=== PATIENT | female | born 1995 | race Caucasian/White ===

== ENCOUNTER 2016-07-24 09:16 | Emergency (ER) | payer SELFPAY ==
[2016-07-24 10:27] VITALS: BP 112/67
--- NOTE | 2016-07-24 11:02 | UC ---
Throat Pain/Nasal Juarez HPI - HPI Summary HPI Summary: complaint of waking up this morning with bilateral eye redness both eyes are itchy purulent drainage in her eyelashes this morning denies vision changes, denies eye pain complaint of nasal congestion and cough that started 2 weeks ago frequent headache increasing pressure in her sinusies productive cough denies fever and chills took some mucinex without relief - History of Current Complaint Chief Complaint: UCGeneralIllness Stated Complaint: SINUS,BILATERAL EYE Time Seen by Provider: 07/24/16 10:55 Hx Last Menstrual Period: doesn't get anymore; on OCP - Allergies/Home Medications Allergies/Adverse Reactions: Allergies Allergy/AdvReac Type Severity Reaction Status Date / Time No Known Allergies Allergy Verified 07/24/16 10:19 Home Medications: Home Medications Norethin Acet & Estrad-Fe [Minastrin 24 Fe 1-20 mg-Mcg(24)] 1 chw PO DAILY 07/24 [History Confirmed 07/24/16] PMH/Surg Hx/FS Hx/Imm Hx Previously Healthy: Yes - Surgical History Surgical History: Yes Surgery Procedure, Year, and Place: plastic surgery on lip for hemangioma, wisdom teeth - Family History Known Family History: Negative: Cardiac Disease, Hypertension, Diabetes - Social History Occupation: Student Alcohol Use: Weekly Substance Use Type: None Smoking Status (MU): Never Smoked Tobacco Review of Systems Constitutional: Negative Skin: Negative Eyes: Eye Redness ENT: Nasal Discharge Respiratory: Cough Cardiovascular: Negative Gastrointestinal: Negative Genitourinary: Negative Motor: Negative Neurovascular: Negative Musculoskeletal: Negative Neurological: Negative Psychological: Negative All Other Systems Reviewed And Are Negative: Yes Physical Exam Triage Information Reviewed: Yes Appearance: No Pain Distress, Well-Nourished Vital Signs: Initial Vital Signs Temp 99.2 F 07/24/16 10:20 Pulse 61 07/24/16 10:20 Resp 16 07/24/16 10:20 BP 112/67 07/24/16 10:20 Pulse Ox 98 07/24/16 10:20 Vital Signs Reviewed: Yes Eyes: Positive: Conjunctiva Inflamed, Discharge ENT: Positive: Pharyngeal erythema, Nasal congestion, Nasal drainage, TMs normal , Other: - frontal and maxillary sinus tenderness Neck: Positive: No Lymphadenopathy Respiratory: Positive: Lungs clear, Normal breath sounds, No respiratory distress, No accessory muscle use Cardiovascular: Positive: RRR, No Murmur, Pulses Normal Abdomen Description: Positive: Nontender, Soft Bowel Sounds: Positive: Present Musculoskeletal Exam: Normal Neurological: Positive: Alert Psychological Exam: Normal Skin Exam: Normal Throat Pain/Nasal Course/Dx - Differential Dx/Diagnosis Differential Diagnosis/HQI/PQRI: Sinusitis, URI, Other - conjunctivitis Provider Diagnoses: conjuncitivitis, sinusitis Discharge - Discharge Plan Condition: Stable Disposition: HOME Prescriptions: Amoxicillin/Clavulanate TAB* [Augmentin TAB 875*] 875 mg PO BID #20 tab Erythromycin OPHTH.OINT* [Ilotycin OPHTH.OINT*] 1 applic BOTH EYES TID #1 ophth.oint Patient Education Materials: Conjunctivitis (ED), Sinusitis (ED) Referrals: Non Staff,Doctor [Primary Care Provider] - [facility] [place]Outside] Additional Instructions: Please take antibiotic as directed Increase fluids and rest Take acetaminophen or ibuprofen for fever or pain Please review your discharge instructions. If your symptoms do not improve please call your primary care provider or return to urgent care.
== END 2016-07-24 11:19 | disposition home or self-care (01) ==
LOC: UCCORT 09:16
DX: H10.33 Unspecified acute conjunctivitis, bilateral (principal); J32.9 Chronic sinusitis, unspecified
CPT/HCPCS: 99202; G0463

== ENCOUNTER 2016-08-31 09:12 | Emergency (ER) | payer OTHER ==
[2016-08-31] MEDS ORDERED: Tetan/Diph/Pertus SYR(Tdap)* 0.5 ML SYR(BOOSTRIX) use SYR IM ONE (10:01)
--- NOTE | 2016-08-31 10:14 | UC ---
Skin Complaint HPI - HPI Summary HPI Summary: stepped on a nail with her left foot, small abrasion / puncture wound requesting TDap - History of Current Complaint Chief Complaint: UCWounds Time Seen by Provider: 08/31/16 10:00 Stated Complaint: STEPPED ON NAIL,LEFT FOOT Hx Obtained From: Patient Hx Last Menstrual Period: unknown, due to birthcontrol does not get ?: No Onset/Duration: Sudden Onset, Lasting Days - 1, Still Present Timing: Constant Onset Severity: Mild Current Severity: Mild Location: Foot (Left) - plantar Aggravating: Nothing Alleviating: Nothing Associated Signs & Symptoms: Positive: Negative - Allergy/Home Medications Allergies/Adverse Reactions: Allergies Allergy/AdvReac Type Severity Reaction Status Date / Time No Known Allergies Allergy Verified 08/31/16 09:48 Review of Systems Constitutional: Negative Eyes: Negative ENT: Negative Respiratory: Negative Cardiovascular: Negative Gastrointestinal: Negative All Other Systems Reviewed And Are Negative: Yes PMH/Surg Hx/FS Hx/Imm Hx Previously Healthy: Yes - Surgical History Surgical History: Yes Surgery Procedure, Year, and Place: plastic surgery on lip for hemangioma, wisdom teeth - Family History Known Family History: Negative: Cardiac Disease, Hypertension, Diabetes - Social History Alcohol Use: Occasionally Substance Use Type: None Smoking Status (MU): Never Smoked Tobacco Physical Exam Triage Information Reviewed: Yes Appearance: Well-Appearing, No Pain Distress, Well-Nourished Vital Signs: Initial Vital Signs Temp 98.2 F 08/31/16 09:43 Pulse 60 08/31/16 09:43 Resp 14 08/31/16 09:43 BP 104/61 08/31/16 09:43 Pulse Ox 100 08/31/16 09:43 Vital Signs Reviewed: Yes Eyes: Positive: Conjunctiva Clear ENT: Positive: Normal ENT inspection, Hearing grossly normal, Pharynx normal Neck exam: Normal Neck: Positive: Supple, Nontender, No Lymphadenopathy Respiratory: Positive: Chest non-tender, Lungs clear, Normal breath sounds Cardiovascular: Positive: RRR, No Murmur, Pulses Normal Skin: Positive: Other - plantar left foot: small puncture wound , no bleeding , no tenderness, no swelling, no erythema Course/Dx - Diagnoses Provider Diagnoses: puncture wound left foot Discharge - Discharge Plan Condition: Stable Disposition: HOME Patient Education Materials: Puncture Wound (ED) Referrals: Non Staff,Doctor [Primary Care Provider] - If Needed
[2016-08-31 10:23] VITALS: BP 104/61
== END 2016-08-31 10:20 | disposition home or self-care (01) ==
LOC: UCCORT 09:12
DX: S91.332A Puncture wound without foreign body, left foot, initial encounter (principal); W22.8XXA Striking against or struck by other objects, initial encounter; Y92.9 Unspecified place or not applicable
CPT/HCPCS: 90471; 90715; 99211; G0463

== ENCOUNTER 2017-01-01 09:49 | Emergency (ER) | payer OTHER ==
[2017-01-01 11:21] VITALS: BP 104/60
--- NOTE | 2017-01-01 11:32 | UC ---
UC General HPI - HPI Summary HPI Summary: patient has had diarrhea for the past 6 days, today it is clearing up, she is able to eat and drink without difficulty. she denies any fever, blood in her stool or vomiting, or abdominal pain - History of Current Complaint Chief Complaint: UCGI Stated Complaint: DIARRHEA X 7 DAYS Time Seen by Provider: 01/01/17 11:22 Hx Obtained From: Patient Hx Last Menstrual Period: "I don't really get one." June BCP Onset/Duration: Sudden Onset, Lasting Days Timing: Intermittent Episodes Lasting: Onset Severity: Moderate Current Severity: Mild Associated Signs & Symptoms: Positive: Diarrhea - Allergy/Home Medications Allergies/Adverse Reactions: Allergies Allergy/AdvReac Type Severity Reaction Status Date / Time No Known Allergies Allergy Verified 01/01/17 11:17 Home Medications: Home Medications Bismuth Subsalicylate [Pepto-Bismol] 524 mg PO Q2H PRN 01/01/17 [History Confirmed 01/01/17] Norethin Acet & Estrad-Fe [04/09 1-20 mg-Mcg] 1 tab PO DAILY 01/01/17 [ History Confirmed 01/01/17] PMH/Surg Hx/FS Hx/Imm Hx Previously Healthy: Yes - Surgical History Surgical History: Yes Surgery Procedure, Year, and Place: plastic surgery on lip for hemangioma, wisdom teeth - Family History Known Family History: Negative: Cardiac Disease, Hypertension, Diabetes - Social History Alcohol Use: Weekly Substance Use Type: None Smoking Status (MU): Former Smoker Length of Time of Smoking/Using Tobacco: 03/27 PPD for 1 Year When Did the Patient Quit Smoking/Using Tobacco: 2013 - Immunization History Most Recent Influenza Vaccination: Not the 2016/2017 Season Most Recent Tetanus Shot: 08/31/16 Review of Systems Constitutional: Negative Skin: Negative Eyes: Negative ENT: Negative Respiratory: Negative Cardiovascular: Palpitations Gastrointestinal: Diarrhea Genitourinary: Negative Motor: Negative Neurovascular: Negative Musculoskeletal: Negative Neurological: Negative Psychological: Negative Is Patient Immunocompromised?: No All Other Systems Reviewed And Are Negative: Yes Physical Exam Triage Information Reviewed: Yes Appearance: Well-Appearing, No Pain Distress, Well-Nourished Vital Signs: Initial Vital Signs Temp 98.6 F 01/01/17 11:13 Pulse 58 01/01/17 11:13 Resp 16 01/01/17 11:13 BP 104/60 01/01/17 11:13 Pulse Ox 100 01/01/17 11:13 Vital Signs Reviewed: Yes Eye Exam: Normal ENT Exam: Normal ENT: Positive: Hearing grossly normal, Pharynx normal, TMs normal Dental Exam: Normal Neck exam: Normal Respiratory Exam: Normal Respiratory: Positive: Chest non-tender, Lungs clear, Normal breath sounds Cardiovascular Exam: Normal Cardiovascular: Positive: RRR, No Murmur, Pulses Normal Abdomen Description: Positive: Nontender, No Organomegaly, Soft, CVA Tenderness (R) - neg, CVA Tenderness (L) - neg Bowel Sounds: Positive: Present Musculoskeletal Exam: Normal Musculoskeletal: Positive: ROM Intact, No Edema Neurological Exam: Normal Neurological: Positive: Alert Psychological Exam: Normal Skin Exam: Normal Course/Dx - Course Course Of Treatment: hx obtained, exam performed, meds reviewed, patient is asymptomatic at this time, reports improvement of symtpoms, recommend probiotic - Differential Dx - Multi-Symptom Provider Diagnoses: diarrhea Discharge - Discharge Plan Condition: Stable Disposition: HOME Patient Education Materials: Nutrition Tips for Relief of Diarrhea (ED) Additional Instructions: 1. take a daily probiotics. 2. Increase fluid intake and get rest 3. Follow up with any worsening symtpoms.
== END 2017-01-01 11:37 | disposition home or self-care (01) ==
LOC: UCCORT 09:49
DX: R19.7 Diarrhea, unspecified (principal)
CPT/HCPCS: 99211; G0463

== ENCOUNTER 2017-02-12 13:33 | Emergency (ER) | payer OTHER ==
--- NOTE | 2017-02-12 14:24 | UC ---
Eye Complaint HPI - HPI Summary HPI Summary: 21 y/o female presents to the urgent care c/o B/L eye redness with blurriness for the past 2 days. Mild Rt eye discharge this morning. Pt doesn't wear contacts. She states she has mild nasal congestion with sore throat for the past week. Now left ear pain. Pain is 3/10. Pt denies fever, SOB, cough, chest pain, N/V/D, abdominal pain. - History of Current Complaint Stated Complaint: BLURRY VISION, EYE COMPLAINT Time Seen by Provider: 02/12/17 14:22 Hx Obtained From: Patient Hx Last Menstrual Period: "I don't really get one." Junel BCP ?: No Onset/Duration: Gradual Onset, Lasting Days - 2 days, Still Present Timing: Constant - Allergies/Home Medications Allergies/Adverse Reactions: Allergies Allergy/AdvReac Type Severity Reaction Status Date / Time No Known Allergies Allergy Verified 02/12/17 14:25 PMH/Surg Hx/FS Hx/Imm Hx Previously Healthy: Yes - Pt denies PMHX - Surgical History Surgical History: Yes Surgery Procedure, Year, and Place: plastic surgery on lip for hemangioma, wisdom teeth - Family History Known Family History: Positive: None - Pt denies FMHX Negative: Cardiac Disease, Hypertension, Diabetes - Social History Occupation: Employed Full-time Lives: With Family Alcohol Use: Weekly Substance Use Type: None Smoking Status (MU): Former Smoker Length of Time of Smoking/Using Tobacco: 03/27 PPD for 1 Year When Did the Patient Quit Smoking/Using Tobacco: 2013 - Immunization History Most Recent Influenza Vaccination: Not the 2016/2017 Season Most Recent Tetanus Shot: 08/31/16 Vaccination Up to Date: Yes Review of Systems Constitutional: Negative Skin: Negative Eyes: Blurred Vision, Eye Redness - B/L eye redness and mild yellowish discharge ENT: Sore Throat Respiratory: Negative Cardiovascular: Negative Gastrointestinal: Negative Genitourinary: Negative Motor: Negative Neurovascular: Negative Musculoskeletal: Negative Neurological: Negative Psychological: Negative Is Patient Immunocompromised?: No All Other Systems Reviewed And Are Negative: Yes Physical Exam Triage Information Reviewed: Yes - Additional Comments Vital Signs Reviewed: Yes General: Well appearing, well nourished female in no apparent pain distress Eyes: Positive: B/L Conjunctiva mild erythema and mild yellowish eye discharge - Visual acuity: WNL,Visual weiner: full to confrontation. no periorbital soft tissue swelling, No ciliary flush. No chemosis, No photophobia. Normal fundoscopic exam; no proptosis, exophthalmos, nystagmus. ENT: Positive: Normal ENT inspection, Hearing grossly normal, Pharynx mild erythema, no exudate, Nasal congestion, Nasal drainage - clear, TMs normal - B/ L external ear canal clear , TM's WNL. Negative: Tonsillar swelling, Tonsillar exudate Neck: Positive: Supple, Nontender, No Lymphadenopathy Respiratory: Positive: Chest nontender, Lungs clear, Normal breath sounds, No respiratory distress Cardiovascular: Positive: RRR, No Murmur, Pulses Normal, Brisk Capillary Refill Abdomen Description: Positive: Nontender, No Organomegaly, Soft. Negative: CVA Tenderness (R), CVA Tenderness (L) Bowel Sounds: Positive: Present Musculoskeletal: Positive: Strength Intact, ROM Intact, No Edema Neurological Exam: Normal Psychological Exam: Normal Skin Exam: Normal Eye Complaint Course/Dx - Course Course Of Treatment: 21 y/o female presents to the urgent care c/o B/L eye redness with blurriness for the past 2 days. Mild Rt eye discharge this morning. Pt doesn't wear contacts. She states she has mild nasal congestion with sore throat for the past week. Now left ear pain. Pain is 3/10. Pt denies fever, SOB, cough, chest pain, N/V/D, abdominal pain.Hx obtained. B/L conjunctiva mildly injected, mild yellowish discharge, and pharyngitis on examiantion. Most likely Bacterial conjunctivitis. Pt Rx Ciprofloxacin ophthalmic drops and Ibuprofen PO to allevaite pain and swelling. Advised if symptoms do not improve or worsen to f/u with Opthalmologist Dr Page or PCP for further managment. Pt understood and agreed. - Differential Dx/Diagnosis Differential Diagnosis/HQI/PQRI: Conjunctivitis, Corneal Abrasion, Other - pharyngitis, URI, otitis media, otitis externa Provider Diagnoses: 1- B/L conjunctivitis. 2-Acute pharyngitis Discharge - Discharge Plan Condition: Stable Disposition: HOME Prescriptions: Ciprofloxacin 0.3% OPTH.MARKY* [Cipro 0.3% Opth*] 1 drop BOTH EYES Q2H #1 btl Ibuprofen TAB* [Motrin TAB* 600 MG] 600 mg PO Q6H PRN #20 tab PRN Reason: Sore Throat Patient Education Materials: Pharyngitis (ED), Conjunctivitis (ED) Referrals: [facility] [place] [facility] [Outside] - If Needed Rashid Page MD [Medical Doctor] - If Needed Non Staff,Doctor [Primary Care Provider] - Additional Instructions: 1-Please apply ophthalmic drops as instructed and finish the full course of treatment to avoid recurrent infection. Encourage hand washing to avoid spreading 2-If you do not improve or if symptoms worsen please f/u with PCP or opthalmologist for further evaluation and treatment
[2017-02-12 14:25] VITALS: BP 114/62
== END 2017-02-12 14:52 | disposition home or self-care (01) ==
LOC: UCCORT 13:33
DX: H10.33 Unspecified acute conjunctivitis, bilateral (principal); J02.9 Acute pharyngitis, unspecified; Z87.891 Personal history of nicotine dependence
CPT/HCPCS: 99212; G0463